=== PATIENT | female | born 1965 | race Caucasian/White ===

== ENCOUNTER 2022-05-09 07:06 | Day surgery (SDC) | payer OTHER ==
[~2022-05-09] VITALS: Ht 170.2 cm; Wt 98.9 kg
[~2022-05-09 07:06] MED LIST: CALC500T68 PO; CIMZ200K SC; DOCU-153 PO; FLUO20CA22 PO; LIDOCAINE 2% 100MG/5ML SDV (FOR ANES.) As Ordered ONE; MESA0.37 PO; MIDAZOLAM INJ 2MG/2ML VIAL As Ordered ONE; OMEP-173 PO; OMEP40CA4 PO; ONDA-83 PO; ONDANSETRON 4MG 2ML VIAL As Ordered ONE; POTA1TAB14 PO; PREDOPD OS; VITA100093 PO; VITMTA PO; [UNRECOGNIZED DRUG - CODE] PO; ceFAZolin SOD 2 GM in IV 1 EA IV ONE; fentaNYL 100 MCG/2 ML INJECTION As Ordered ONE; propofoL 200 MG/20 ML VIAL As Ordered ONE
[2022-05-09] MEDS ORDERED: ISOVUE-300 61% 100ML VIAL As Ordered ONE (08:23)
[2022-05-09] MEDS ORDERED: ACETAMINOPHEN 1000MG 100ML IV BAG As Ordered ONE (08:51)
[2022-05-09] MEDS ORDERED: HYDROmorphone HCL 2MG/ML 1ML VIAL As Ordered ONE (09:21)
[2022-05-09] MEDS ORDERED: fentaNYL 100 MCG/2 ML INJECTION IV PRN (09:45)
[2022-05-09] MEDS ORDERED: oxyCODONE 5MG TAB PO PRN (09:45)
[2022-05-09] MEDS ORDERED: LR 1,000 ML IV SCH (09:45)
[2022-05-09] MEDS ORDERED: ONDANSETRON 4MG 2ML VIAL IV PRN (09:45)
[2022-05-09] MEDS ORDERED: OXYC1TAB23 PO (10:11)
[2022-05-09] MEDS ORDERED: OXYB10TA23 PO (10:11)
[2022-05-09] MEDS ORDERED: PERCOCET 5MG/325MG TAB PO PRN (11:00)
[2022-05-09] MEDS ORDERED: oxyBUTYnin 5 MG TAB PO PRN (11:00)
[2022-05-09 11:45] VITALS: BP 129/75
== END 2022-05-09 11:45 | disposition home or self-care (01) ==
LOC: M SDC 07:06
PROVIDERS: ATTEND Urology
DX: N13.1 Hydronephrosis with ureteral stricture, not elsewhere classified (principal); N20.1 Calculus of ureter; K21.9 Gastro-esophageal reflux disease without esophagitis; Z88.5 Allergy status to narcotic agent; Z79.899 Other long term (current) drug therapy; Z79.2 Long term (current) use of antibiotics
CPT/HCPCS: 52332; 52345; 76000; C1769; C1894; C2617; J0131; J0690; J1100; J1170; J2250; J2405; J3010; Q9967

== ENCOUNTER → 2022-09-20 | Outpatient (CLI) | payer OTHER ==
[~2022-09-20] MED LIST changes: +FUROSEMIDE 20MG/2ML VIAL As Ordered ONE; -LIDOCAINE 2% 100MG/5ML SDV (FOR ANES.) As Ordered ONE; -MIDAZOLAM INJ 2MG/2ML VIAL As Ordered ONE; -ONDANSETRON 4MG 2ML VIAL As Ordered ONE; +OXYB10TA23 PO; +OXYC1TAB23 PO; +POTA-298 PO; -POTA1TAB14 PO; -ceFAZolin SOD 2 GM in IV 1 EA IV ONE; -fentaNYL 100 MCG/2 ML INJECTION As Ordered ONE; -propofoL 200 MG/20 ML VIAL As Ordered ONE
== END ==
LOC: M RAD 07:07
PROVIDERS: ATTEND Urology
DX: N13.5 Crossing vessel and stricture of ureter without hydronephrosis (principal)
CPT/HCPCS: 78708; A9562; J1940